=== PATIENT | female | born 1955 | race Caucasian/White ===

== ENCOUNTER 2016-07-13 16:26 | Emergency (ER) | payer MEDICARE, OTHER ==
[~2016-07-13 16:26] MED LIST: Sodium Chloride 0.9% 1,000 ML BAG ONE
--- NOTE | 2016-07-13 17:43 | RAD ---
PORTABLE CHEST 1 VIEW: Date: 07/13/16 Time: 1705 hours HISTORY: Nausea and vomiting. FINDINGS: Comparison made with exam of 08/27/12. The heart size is normal. The lungs are well expanded without focal areas of consolidation, pneumoth orax, or pleural effusions. IMPRESSION: No radiographic evidence of acute cardiopulmonary process. POS: [facility]
[2016-07-13 17:56] LABS: #Eosinphils 0.1 thou/uL (0.0-0.7); #Lymphocytes 0.5 thou/uL (1.20-3.40); #Monocytes 0.3 thou/uL (0.11-0.59); #Neutrophils 2.3 thou/uL (1.40-6.50); %Basophils 1.4 % (0.0-1.0); %Eosinophils 2.6 % (0.0-10.0); %Lymphocytes 15.4 % (21.0-51.0); %Monocytes 8.9 % (0.0-10.0); %Neutrophils 71.7 % (42.0-75.0); Mean Corpuscular HGB CONC 32.1 g/dL (32.0-36.0); Mean Corpuscular Hemoglobin 29.4 pg (27.0-31.0); Mean Corpuscular Volume 91.7 fl (81.0-99.0); Mean Platelet Volume 7.2 fL (7.4-10.4); Platelet Count 174 thou/uL (130-400); RBC Distribution Width 14.8 % (11.5-14.5); Red Blood Cell (RBC) Count 5.42 mill/uL (4.20-5.40); White Blood Cell (WBC) Count 3.2 thou/uL (4.8-10.8)
[2016-07-13] MEDS ORDERED: Pantoprazole 40 MG VIAL ONE (17:58)
[2016-07-13] MEDS ORDERED: Ondansetron HCl/PF 4 MG/2 ML Vial ONE (17:58)
[2016-07-13 17:59] LABS: ALT (SGPT) 36 U/L (0-55); AST (SGOT) 42 U/L (5-34); Albumin 4.6 g/dL (3.4-4.8); Alkaline Phosphatase 88 U/L (40-150); Anion Gap 26 mmol/L (10-20); BUN (Urea Nitrogen) 13 mg/dL (9.8-20.1); Bilirubin, Total 0.6 mg/dL (0.2-1.2); Calc. Creatinine Clearance 0 mL/min (70-130); Calcium 9.9 mg/dL (7.8-10.44); Carbon Dioxide 19 mmol/L (23-31); Chloride 99 mmol/L (98-107); Estimated GFR-MDRD 57; Globulin 3.5 g/dL (2.4-3.5); Glucose 178 mg/dL (80-115); Lactic Acid 6.2 mmol/L (0.5-2.2); Lipase 14 U/L (8-78); Magnesium 1.9 mg/dL (1.6-2.6); Potassium 4.3 mmol/L (3.5-5.1); Protein, Total 8.1 g/dL (5.8-8.1); Sodium 140 mmol/L (136-145)
[2016-07-13 18:03] LABS: CKMB 5.2 ng/mL (0-6.6); Troponin I Less than 0.010 ng/mL (< 0.028)
--- NOTE | 2016-07-13 19:31 | CT ---
CT ABDOMEN AND PELVIS WITHOUT CONTRAST: 07/13/16 HISTORY: Nausea, vomiting, diarrhea. FINDINGS: The absence of oral and IV contrast reduces the sensitivity of the exam particularly for solid organ s and bowel. The lung bases are clear. The patient is status post cholecystectomy. No free air or free fluid is s een in the abdomen or pelvis. The liver demonstrates decreased echogenicity compared to the spleen consistent with fatty infiltrat ion. There is atrophic change in the pancreas. No calculi is seen in the kidneys, ureters, or the ur inary bladder. No hydroureteronephrosis is seen on either side. There is fluid in loops of small and large bowel and the rectum. A normal appearing appendix is seen. There is no evidence of aneurysmal dilatation of the abdominal aorta. There are degenerative changes in the spine. A small hiatal julio ia is seen. IMPRESSION: 1. Fatty liver. 2. Small hiatal hernia. 3. No CT evidence of urinary tract calculi/obstruction or appendicitis. 4. Probable enteritis/colitis. POS: [facility]
[2016-07-13] MEDS ORDERED: Promethazine HCl 25 MG/ML VIAL ONE (19:54)
--- NOTE | 2016-07-13 20:05 | ERRECORD ---
[facility] EMERGENCY RECORD HPI NAUSEA/VOMITING/DIARRHEA (17:49 ABUS) CHIEF COMPLAINT: Patient presents for evaluation of nausea, Patient presents for evaluation of vomiting, Patient presents for evaluation of diarrhea. HISTORIAN: History provided by patient, 61 yr old F here with acute onset of N/V/D that started about 2 hrs ago. She says she doesn't feel good and has had an ulcer before. This does not feel the same. Denies any melena. LOCATION FEMALE: Symptoms are localized, most severe in the epigastrium. QUALITY: Pain is dull in nature, described as aching. SEVERITY: Currently symptoms are severe, Current severity of pain rated as 10/10. TIME COURSE: Sudden onset of symptoms, just prior to arrival, There has been no change in the patient's symptoms over time. ASSOCIATED WITH FEMALE: Associated with diarrhea, Associated with nausea, Associated with vomiting. EXACERBATED BY: Patient's condition exacerbated by nothing. RELIEVED BY: Patient's condition relieved by nothing. ROS (17:51 ABUS) CONSTITUTIONAL: Negative constitutional review of systems, Historian denies chills, denies fever. EYES: Negative eye review of systems, Historian denies eye pain, denies vision changes. ENT: Negative ears, nose, throat review of systems, Historian denies rhinorrhea, denies sore throat, denies voice changes. CARDIOVASCULAR: Negative cardiovascular review of systems, Historian denies chest pain, denies palpitations. RESPIRATORY: Negative respiratory review of systems, Historian denies cough, denies shortness of breath. GI: Historian reports abdominal pain, reports diarrhea, denies hematochezia, denies jaundice, denies melena, reports nausea, reports vomiting. GENITOURINARY FEMALE: Negative genitourinary review of systems, Historian denies dysuria, denies frequency. MUSCULOSKELETAL: Negative musculoskeletal review of systems, Historian denies back pain, denies fall, denies injury. SKIN: Negative skin review of systems, Historian denies rash, denies skin changes. NEUROLOGIC: Negative neurologic review of systems, Historian denies headache, denies mental status changes, denies paralysis, denies paresthesias, denies sensory changes. HEMO/LYMPHATIC: Normal hematologic/lymphatic system review, Historian denies abnormal blood clotting. ALLERGIC/IMMUNOLOGIC: Normal allergy/immunologic system review, Historian denies frequent infections. PAST MEDICAL HISTORY &a-1R&a+25V*p+0X*[id number]*c202B*c15G*c2P*p-0X&a-25V&a+1R Name: Liliana Rios : 1955 F61 MedRec: [id number] AcctNum: [id number] Prepared: SatJul 13, 2016 20:07 by Interface Page 1 of 4 pMD [facility] EMERGENCY RECORD MEDICAL HISTORY: Notes: multiple myleloma, stem cell transplant,, Past medical history includes history of diabetes, Type II, Past medical history includes endocrine disease, hyperthyroidism, Past medical history includes gastrointestinal disease, gastroesophageal reflux disease, peptic ulcer disease, Past medical history includes history of hyperlipidemia, high cholesterol, Past medical history includes history of hypertension, which has been treated, Past medical history includes history of obesity, pulmonary disease. asthma. (18:25 SFRE) FEMALE SURGICAL HISTORY: Surgical history of hysterectomy, Surgical history of orthopedic surgery, back, Surgical history of tonsillectomy. (18:29 SFRE) PSYCHIATRIC HISTORY: Psychiatric history includes, anxiety, depression. (18:30 SFRE) KNOWN ALLERGIES tetracycline CURRENT MEDICATIONS (18:36 SFRE) metFORMIN: TABLET : Strength - 1,000 mg : ORAL Patient Dose: 500 mg Oral 2 times a day. Synthroid: TABLET : Strength - 50 mcg : ORAL Patient Dose: 5 mg Oral once a day. VITAL SIGNS (16:30 SFRE) VITAL SIGNS: BP: 155/83, Pulse: 80, Resp: 18, Temp: 98.4 (Tympanic), Pain: 10 (Stabbing), O2 sat: 100 on 2L Oxygen, Time: 07/13/2016 16:30. PHYSICAL EXAM (17:51 ABUS) CONSTITUTIONAL: Vital signs reviewed, Patient afebrile, Pulse normal, Blood pressure normal, Respiratory rate normal, Patient appears non toxic, Patient appears pain free, Patient alert and oriented to person, place and time. HEAD: Head exam normal, Head exam included findings of head atraumatic, normocephalic. EYES: Eye exam normal, Eye exam included findings of eyelids normal to inspection, Pupils equally round and reactive to light, Extraocular muscles intact, no nystagmus. ENT: ENT exam normal, Ear exam normal, external ear normal, tympanic membranes normal, no bleeding, Pharynx exam normal, Uvula exam normal, Tonsil exam normal, Mouth exam normal, mucous membranes moist, teeth normal. NECK: Neck exam normal, Neck exam included findings of normal range of motion, Trachea midline, no meningeal signs, no cervical &a-1R&a+25V*p+0X*[id number]*c202B*c15G*c2P*p-0X&a-25V&a+1R Name: Liliana Rios : 1955 F61 MedRec: [id number] AcctNum: [id number] Prepared: SatJul 13, 2016 20:07 by Interface Page 2 of 4 pMD [facility] EMERGENCY RECORD adenopathy, no tenderness. RESPIRATORY CHEST: Respiratory and chest exam normal, Respiratory exam included findings of no respiratory distress, Breath sounds clear. CARDIOVASCULAR: Cardiovascular assessment normal, Cardiovascular exam included findings of heart rate regular rate and rhythm, Heart sounds normal. ABDOMEN FEMALE: Abdominal exam included findings of abdomen nontender, Bowel sounds, hypoactive, no distension, no mass, no peritoneal signs, no rigidity, no guarding, no rebound. BACK: Back exam normal, Back exam included findings of normal inspection, range of motion normal, no tenderness. UPPER EXTREMITY: Upper extremity exam normal, Upper extremity exam included findings of inspection normal, Range of motion normal, Motor strength normal, Sensation intact, Radial pulse normal. LOWER EXTREMITY: Lower extremity exam normal, Lower extremity exam included findings of inspection normal, Range of motion normal, Motor strength normal, Sensation intact, Posterior tibial pulse normal, Pedal pulse normal. NEURO: Neuro exam normal, Neuro exam findings include patient oriented to person, place and time, Speech normal, Gait normal, Cranial nerves intact, no focal motor deficits, no focal sensory deficits. SKIN: Skin exam normal, Skin exam included findings of skin warm, dry, and normal in color, no rash. PSYCHIATRIC: Psychiatric exam normal, Normal affect. RADIOLOGYINTERPRETATION (19:32 ABUS) ABDOMEN: Abdomen/pelvis CT scan, without contrast negative, no abdominal aortic aneurysm, no appendicitis, no diverticulitis, no kidney stones, no injuries, no mass, no obstruction, no free air, no hydronephrosis. COOLER ROOM WORKER: Preliminary review of CT scans by, ED Physician, Radiologist. MEDICATION ADMINISTRATION SUMMARY Drug Name: promethazine injection, Dose Ordered: 25 mg, Route: IV Piggy Back, Status: Given, Time: 20:00 07/13/2016, Drug Name: *sodium chloride 0.9 % intravenous, Dose Ordered: 2 L, Route: IV Fluid Infusion, Status: Given, Time: 19:59 07/13/2016, Drug Name: morphine (PF) injection, Dose Ordered: 4 mg, Route: IV Push, Status: Given, Time: 18:21 07/13/2016, Drug Name: pantoprazole intravenous, Dose Ordered: 40 mg, Route: IV Push, Status: Given, Time: 18:09 07/13/2016, Drug Name: Zofran intravenous, Dose Ordered: 8 mg, Route: IV Push, Status: Given, Time: 18:08 07/13/2016, Drug Name: *sodium chloride 0.9 % intravenous, Dose Ordered: 1 L, Route: IV Fluid Infusion, Status: Given, Time: 18:05 07/13/2016, &a-1R&a+25V*p+0X*[id number]*c202B*c15G*c2P*p-0X&a-25V&a+1R Name: Liliana Rios : 1955 F61 MedRec: [id number] AcctNum: [id number] Prepared: SatJul 13, 2016 20:07 by Interface Page 3 of 4 pMD [facility] EMERGENCY RECORD *Additional information available in notes, Detailed record available in Medication Service section. DOCTOR NOTES (17:52 ABUS) TEXT: 61 yr old F here with acute onset of N/V/D that started about 2 hrs ago. She says she doesn't feel good and has had an ulcer before Exam: ANGÉLICA pain to palpation DDX: viral gastroenteritis, gastritis, dehydration, electrolyte disorder, pancreatitis, cholecystitis Plan: IV, IVF, labs, UA, antiemetics, CXR. PROBLEM LIST No recorded problems DIAGNOSIS (19:45 ABUS) FINAL: PRIMARY: Diarrhea, ADDITIONAL: Nausea with vomiting. PRESCRIPTION No recorded prescriptions DISPOSITION PATIENT: Disposition Type: Transfer, Disposition: Transfer to [facility], Disposition Transport: Ambulance, Condition: Fair. (19:45 ABUS) Patient left the department. (20:03 JDEA) [place]: MICHELLE=MD Kayy, Freddy IVY=Pedro, SOY, Sandra CLEMENTS=SOY [place], Kimberley &a-1R&a+25V*p+0X*[id number]*c202B*c15G*c2P*p-0X&a-25V&a+1R Name: Liliana Rios : 1955 F61 MedRec: [id number] AcctNum: [id number] Prepared: SatJul 13, 2016 20:07 by Interface Page 4 of 4 pMD MTDD
--- NOTE | 2016-07-13 20:13 | PICIS ---
[facility] EMERGENCY RECORD TRIAGE (SatJul 13, 2016 16:31 SFRE) TRIAGE NOTES: N/V/D THAT STARTED 2 HOURS AGO. (SatJul 13, 2016 16:31 SFRE) PATIENT: AGE: 61, GENDER: female, : Sat1955, TIME OF GREET: SatJul 13, 2016 16:28, PREFERRED LANGUAGE: Hungarian, ECODE BILLING MAP: [facility], Zip Code: [facility], KG WEIGHT: [phone], PHONE: , , , PERSON ID: [id number], PCP: OOT. (SatJul 13, 2016 16:31 SFRE) NAME: Liliana Rios, ETHNICITY: Not or . (16:44) COMPLAINT: DIARRHEA, VOMITING. (SatJul 13, 2016 16:31 SFRE) ADMISSION: URGENCY: 3 Urgent, ADMISSION SOURCE: Home, TRANSPORT: Walk-in, BED: ED -03. (SatJul 13, 2016 16:31 SFRE) SIRS SCORING: Heart Rate 55-109 (0), Temp range 96.8-101.1 (0), respiratory rate 12-24 (0), Mental Status altered: no (0). (18:25 SFRE) TRIAGE SCREENING: Patient denies suicidal ideation, Patient denies presence of domestic violence. (18:25 SFRE) PROVIDERS: TRIAGE NURSE: Kimberley Oviedo RN. (SatJul 13, 2016 16:31 SFRE) VITAL SIGNS: BP 155/83, Pulse 80, Resp 18, Temp 98.4, (Tympanic), Pain 10, (Stabbing), O2 Sat 100, on 2L Oxygen, Time 07/13/2016 16:30. (16:30 SFRE) KNOWN ALLERGIES tetracycline CURRENT MEDICATIONS (18:36 SFRE) metFORMIN: TABLET : Strength - 1,000 mg : ORAL Patient Dose: 500 mg Oral 2 times a day. Synthroid: TABLET : Strength - 50 mcg : ORAL Patient Dose: 5 mg Oral once a day. VITAL SIGNS (16:30 SFRE) VITAL SIGNS: BP: 155/83, Pulse: 80, Resp: 18, Temp: 98.4 (Tympanic), Pain: 10 (Stabbing), O2 sat: 100 on 2L Oxygen, Time: 07/13/2016 16:30. NURSING ASSESSMENT: ABDOMEN (18:30 SFRE) CONSTITUTIONAL: Patient arrives ambulatory, Gait steady, History obtained from patient, Patient appears, generally ill, Patient cooperative, Patient alert, Oriented to person, place and time, Skin abnormal, Skin temperature is cold, Skin dry, Skin, pale in color, Mucous membranes pink, Mucous membranes, tacky, Patient is well-groomed, Patient complains of N/V/D. 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 ABDOMEN: Abdomen assessment findings include abdomen symmetrical, Abdomen soft, tender, diffusely, Associated with nausea, Associated with vomiting, Associated with diarrhea, Number of episodes: MULTIPLE, CLEAR FLUID. GENITOURINARY FEMALE: no associated urinary complaints. SAFETY: Side rails up, Cart/Stretcher in lowest position, Family at bedside, Call light within reach, Hospital ID band on. NURSING ASSESSMENT: FALL RISK (19:42 JDEA) FALL RISK: Fall risk assessment findings include: no history of falls (0), No bed rest greater than 2 days (0), No use of level of consciousness altering agents with mentation or cognitive changes (0), No change in blood pressure (0), No sensory deficits (0), No impaired mobility (0), No neurologic diagnosis (0), Elimination problems (3), No confusion (0), Total score 3, No risk for fall, Notes: utilizes standby assist. NURSING ASSESSMENT: SKIN (19:42 JDEA) SKIN: Skin assessment findings include skin warm, Skin dry, Skin normal in color. NUNO SCALE: (4) Sensory perception has no impairment, (4) Skin is rarely moist, (3) Patient walks occasionally, (3) Slightly limited mobility, (3) Adequate nutrition, (2) Patient has potential problem moving, Nuno Risk Total: 19. NOTES: Patient tolerated procedure well. NURSING PROCEDURE: ELIMINATION (19:20 JDEA) PATIENT IDENTIFIER: Patient actively involved in identification process. ELIMINATION: Patient assisted to bedside commode, Patient had a large amount of stool per bedpan, liquid in form, Stool specimen collected, labeled in the presence of the patient and sent to lab, Patient incontinent of stool, Incontinence care given, Stool specimen collected, and sent to lab, Stool specimen for culture collected, and sent to lab, and labeled in the presence of the patient. NOTES: Patient tolerated procedure well. NURSING PROCEDURE: IV IV SITE 1: IV therapy indicated for hydration, IV therapy indicated for medication administration, IV established, to the right antecubital, using a 20 gauge catheter, in one attempt, Saline lock established, Flushed with normal saline (mls): 5CC. (18:33 SFRE) FOLLOW-UP SITE 1: After procedure, no drainage at IV site, After procedure, no swelling at IV site, After procedure, no redness at IV site. (18:34 SFRE) &a-1R&a+25V*p+0X*d7582Y*c202B*c15G*c2P*p-0X&a-25V&a+1R Name: Liliana Rios : 1955 F61 MedRec: [id number] AcctNum: [id number] Prepared: SatJul 13, 2016 20:07 by Interface Page 2 of 13 D [facility] EMERGENCY RECORD NURSING PROCEDURE: NURSE NOTES (18:37 SFRE) NURSES NOTES: Notes: ON BSC WITH CONTINUOUS DIARRHEA. NURSING PROCEDURE: TRANSFER (20:01 JDEA) TRANSFER: Reason for transfer need for specialized care, Diagnosis: colitis, Accepting institution: [facility], Accepting physician: rosemary, Referring physician: kayy, Transported by non-urgent ambulance, accompanied by emergency medical services personnel, Report called to receiving facility, Summary of Care printed. BELONGINGS: Belongings and valuables with patient at time of discharge include:, Belongings remain with patient. NOTES: Patient tolerated procedure well. NURSING PROCEDURE: TRANSPORT TO TESTS PATIENT IDENTIFIER: Patient actively involved in identification process, Patient's identity verified by patient stating name, Patient's identity verified by patient stating date, Patient's identity verified by hospital ID bracelet. (18:59 JDEA) TRANSPORT TO TESTS: Transport indicated to facilitate diagnosis, Patient transported to CT scan, via wheelchair, Accompanied by x-ray salvage engineering technician. (18:59 JDEA) FOLLOW-UP: After procedure, patient returned to emergency department. (19:15 JDEA) NOTES: Patient tolerated procedure well. (18:59 JDEA) SAFETY: Side rails up, Cart/Stretcher in lowest position, Family at bedside, Call light within reach, Hospital ID band on. (18:59 JDEA) ORDER DETAILS Order Name: Cardiac Profile w/CKMB & Troponin - I, Status: Active, Time: 16:43 07/13/2016, User: ABUS, - Ordered for: MD Sultana Anthony, - Entered by: MD Sultana Anthony - SatJul 13, 2016 16:43, - Quantity: 1, Order Name: CBC with Differential, Status: Active, Time: 16:43 07/13/2016, User: ABUS, - Ordered for: MD Sultana Anthony, - Entered by: MD Sultana Anthony - SatJul 13, 2016 16:43, - Quantity: 1, Order Name: Clostridium difficile Screen, Status: Active, Time: 18:58 07/13/2016, User: JDEA, - Ordered for: MD Sultana Anthony, - Entered by: SOY Vasquez Justine - SatJul 13, 2016 18:58, - Quantity: 1, Order Name: Comprehensive Metabolic Panel, Status: Active, Time: 16:43 07/13/2016, User: ABUS, - Ordered for: MD Sultana Anthony, &a-1R&a+25V*p+0X*c8213J*c202B*c15G*c2P*p-0X&a-25V&a+1R Name: Liliana Rios : 1955 F61 MedRec: [id number] AcctNum: [id number] Prepared: SatJul 13, 2016 20:07 by Interface Page 3 of 13 pMD [facility] EMERGENCY RECORD - Entered by: MD Sultana Anthony - SatJul 13, 2016 16:43, - Quantity: 1, Order Name: CT Abdomen Pelvis W Con, Status: Canceled, Time: 18:41 07/13/2016, User: System, - Ordered for: MD Sultana Anthony, - Entered by: MD Sultana Anthony - SatJul 13, 2016 18:09, - Quantity: 1, Order Name: Culture, Blood, Status: Active, Time: 18:08 07/13/2016, User: ABUS, - Ordered for: MD Sultana Anthony, - Entered by: MD Sultana Anthony - SatJul 13, 2016 18:08, - Quantity: 1, Order Name: Culture, Stool & Campy Screen, Status: Active, Time: 18:58 07/13/2016, User: BIJU, - Ordered for: MD Sultana Anthony, - Entered by: SOY Vasquez, Sandra - SatJul 13, 2016 18:58, - Quantity: 1, Order Name: Culture, Stool for E.coli O157, Status: Active, Time: 18:58 07/13/2016, User: BIJU, - Ordered for: MD Sultana Anthony, - Entered by: SOY Vasquez, Sandra - SatJul 13, 2016 18:58, - Quantity: 1, Order Name: Culture, Urine, Status: Active, Time: 18:08 07/13/2016, User: AB, - Ordered for: MD Sultana Anthony, - Entered by: MD Sultana Anthony - SatJul 13, 2016 18:08, - Quantity: 1, Order Name: Fecal Lactoferrin, Status: Active, Time: 18:58 07/13/2016, User: BIJU, - Ordered for: MD Sultana Anthony, - Entered by: SOY Vasquez, Sandra - SatJul 13, 2016 18:58, - Quantity: 1, Order Name: Lactic Acid, Status: Active, Time: 16:44 07/13/2016, User: MICHELLE, - Ordered for: MD Sultana Anthony, - Entered by: MD Sultana Anthony - SatJul 13, 2016 16:44, - Quantity: 1, Order Name: Lipase, Status: Active, Time: 16:43 07/13/2016, User: ABUS, - Ordered for: MD Sultana Anthony, - Entered by: MD Sultana Anthony - SatJul 13, 2016 16:43, - Quantity: 1, Order Name: Magnesium, Status: Active, Time: 16:44 07/13/2016, User: ABUS, - Ordered for: MD Sultana Anthony, - Entered by: MD Sultana Anthony - SatJul 13, 2016 16:44, - Quantity: 1, Order Name: SALINE LOCK, Status: Done, Time: 18:26 07/13/2016, User: SFRE, - Ordered for: MD Sultana Anthony, - Entered by: MD Sultana Anthony - SatJul 13, 2016 16:44, &a-1R&a+25V*p+0X*h5700X*c202B*c15G*c2P*p-0X&a-25V&a+1R Name: Liliana Rios : 1955 F61 MedRec: [id number] AcctNum: [id number] Prepared: SatJul 13, 2016 20:07 by Interface Page 4 of 13 D [facility] EMERGENCY RECORD - Quantity: 1, Order Name: Type & Screen, Status: Active, Time: 16:43 07/13/2016, User: ABUS, - Ordered for: MD Sultana Anthony, - Entered by: MD Sultana Anthony - SatJul 13, 2016 16:43, - Quantity: 1, Order Name: Urinalysis w/ Rflx Microscopic, Status: Active, Time: 16:43 07/13/2016, User: ABUS, - Ordered for: MD Sultana Anthony, - Entered by: MD Sultana Anthony - SatJul 13, 2016 16:43, - Quantity: 1, Order Name: XR Chest 1 View Portable, Status: Active, Time: 16:43 07/13/2016, User: ABUS, - Ordered for: MD Sultana Anthony, - Entered by: MD Sultana Anthony - SatJul 13, 2016 16:43, - Quantity: 1. MEDICATION ADMINISTRATION SUMMARY Drug Name: promethazine injection, Dose Ordered: 25 mg, Route: IV Piggy Back, Status: Given, Time: 20:00 07/13/2016, Drug Name: *sodium chloride 0.9 % intravenous, Dose Ordered: 2 L, Route: IV Fluid Infusion, Status: Given, Time: 19:59 07/13/2016, Drug Name: morphine (PF) injection, Dose Ordered: 4 mg, Route: IV Push, Status: Given, Time: 18:21 07/13/2016, Drug Name: pantoprazole intravenous, Dose Ordered: 40 mg, Route: IV Push, Status: Given, Time: 18:09 07/13/2016, Drug Name: Zofran intravenous, Dose Ordered: 8 mg, Route: IV Push, Status: Given, Time: 18:08 07/13/2016, Drug Name: *sodium chloride 0.9 % intravenous, Dose Ordered: 1 L, Route: IV Fluid Infusion, Status: Given, Time: 18:05 07/13/2016, *Additional information available in notes, Detailed record available in Medication Service section. MEDICATION SERVICE morphine (PF) injection: Order: morphine (PF) injection (morphine sulfate/preservative free) - Dose: 4 mg : IV Push Schedule: Now Ordered by: Freddy Sultana MD Entered by: Freddy Sultana MD SatJul 13, 2016 17:57 , Acknowledged by: Kimberley Oviedo RN SatJul 13, 2016 18:09 Documented as given by: Kimberley Oviedo RN SatJul 13, 2016 18:21 Patient, Medication, Dose, Route and Time verified prior to administration. Amount given: 4mg, IV SITE #1 IVP, subsequent different medication, Slowly, Awake and alert- acceptable, Catheter placement confirmed via flush prior to administration, IV site without signs or symptoms of infiltration during medication administration, No swelling during administration, No drainage during administration, IV flushed after administration, Correct patient, time, route, dose and medication &a-1R&a+25V*p+0X*i2379K*c202B*c15G*c2P*p-0X&a-25V&a+1R Name: Liliana Rios : 1955 F61 MedRec: [id number] AcctNum: [id number] Prepared: SatJul 13, 2016 20:07 by Interface Page 5 of 13 pMD [facility] EMERGENCY RECORD confirmed prior to administration, Patient advised of actions and side-effects prior to administration, Allergies confirmed and medications reviewed prior to administration, Patient in position of comfort, Side rails up, Cart in lowest position, Family at bedside. pantoprazole intravenous: Order: pantoprazole intravenous (pantoprazole sodium) - Dose: 40 mg : IV Push Schedule: Now Ordered by: Freddy Sultana MD Entered by: Freddy Sultana MD SatJul 13, 2016 16:45 , Acknowledged by: Kimberley Oviedo RN SatJul 13, 2016 17:56 Documented as given by: Kimberley Oviedo RN SatJul 13, 2016 18:09 Patient, Medication, Dose, Route and Time verified prior to administration. Amount given: 40mg, IV SITE #1 IVP, subsequent different medication, Slowly, Awake and alert- acceptable, Catheter placement confirmed via flush prior to administration, IV site without signs or symptoms of infiltration during medication administration, No swelling during administration, No drainage during administration, IV flushed after administration, Correct patient, time, route, dose and medication confirmed prior to administration, Patient advised of actions and side-effects prior to administration, Allergies confirmed and medications reviewed prior to administration, Patient in position of comfort, Side rails up, Cart in lowest position, Family at bedside. promethazine injection: Order: promethazine injection (promethazine HCl) - Dose: 25 mg : IV Piggy Back Schedule: Now Ordered by: Freddy Sultana MD Entered by: Freddy Sultana MD SatJul 13, 2016 19:13 , Acknowledged by: Sandra Vasquez RN SatJul 13, 2016 19:24 Documented as given by: Sandra Vasquez RN SatJul 13, 2016 20:00 Patient, Medication, Dose, Route and Time verified prior to administration. Amount given: 25mg, IV SITE #1 IVPB or drip, initial infusion, Awake and alert- acceptable, Ordering Physician approved to Give, Connections checked prior to administration, Line traced prior to administration, Catheter placement confirmed via flush prior to administration, IV site without signs or symptoms of infiltration during medication administration, No swelling during administration, No drainage during administration, IV flushed after administration, Correct patient, time, route, dose and medication confirmed prior to administration, Patient advised of actions and side-effects prior to administration, Allergies confirmed and medications reviewed prior to administration, Patient in position of comfort, Side rails up, Cart in lowest position, Family at bedside, Call light in reach. sodium chloride 0.9 % intravenous: Order: sodium chloride 0.9 % intravenous (0.9 % sodium chloride) - Dose: 1 L : IV Fluid Infusion Schedule: Now Notes: (Bolus) Ordered by: Freddy Sultana MD &a-1R&a+25V*p+0X*g0618L*c202B*c15G*c2P*p-0X&a-25V&a+1R Name: Liliana Rios : 1955 F61 MedRec: [id number] AcctNum: [id number] Prepared: SatJul 13, 2016 20:07 by Interface Page 6 of 13 D [facility] EMERGENCY RECORD Entered by: Freddy Sultana MD SatJul 13, 2016 16:44 , Acknowledged by: Kimberley Oviedo RN SatJul 13, 2016 17:56 Documented as given by: Kimberley Oviedo RN SatJul 13, 2016 18:05 Patient, Medication, Dose, Route and Time verified prior to administration. Amount given: 1l, IV SITE #1 IV fluids established for hydration, IV SITE #1 into left antecubital, IV SITE #1 Rate of bolus, wide open, via primary tubing, IV SITE #1 Tubing changed to pump tubing, Awake and alert- acceptable, Catheter placement confirmed via flush prior to administration, IV site without signs or symptoms of infiltration during medication administration, No swelling during administration, No drainage during administration, IV flushed after administration, Correct patient, time, route, dose and medication confirmed prior to administration, Patient advised of actions and side-effects prior to administration, Allergies confirmed and medications reviewed prior to administration, Patient in position of comfort, Side rails up, Cart in lowest position, Family at bedside. : Follow Up : Response assessment performed, No signs or symptoms of allergic reaction noted, _IV SITE #1:_, IV fluid infusion discontinued, on SatJul 13, 2016 20:00, Total fluid hydration time IV site 1 1 hour, 55 minutes, ., Total amount infused: 1L. (20:00 JDEA) sodium chloride 0.9 % intravenous: Order: sodium chloride 0.9 % intravenous (0.9 % sodium chloride) - Dose: 2 L : IV Fluid Infusion Schedule: Now Notes: (Bolus) Ordered by: Freddy Sultana MD Entered by: Freddy Sultana MD SatJul 13, 2016 18:01 , Acknowledged by: Kimberley Oviedo RN SatJul 13, 2016 18:39 Documented as given by: Sandra Vasquez RN SatJul 13, 2016 19:59 Patient, Medication, Dose, Route and Time verified prior to administration. Amount given: 2L, IV SITE #1 IV fluids established for hydration, Catheter placement confirmed via flush prior to administration, IV site without signs or symptoms of infiltration during medication administration, No swelling during administration, No drainage during administration, IV flushed after administration, Correct patient, time, route, dose and medication confirmed prior to administration, Patient advised of actions and side-effects prior to administration, Allergies confirmed and medications reviewed prior to administration, Patient in position of comfort, Side rails up, Cart in lowest position, Family at bedside, Call light in reach. : Follow Up : Response assessment performed, No signs or symptoms of allergic reaction noted, _IV SITE #1:_, IV fluid infusion discontinued, on SatJul 13, 2016 20:01, 5 minutes, ., Total amount infused: 2L. (20:01 JDEA) Zofran intravenous: Order: Zofran intravenous (ondansetron HCl) - Dose: 8 mg : IV Push Schedule: Now &a-1R&a+25V*p+0X*u7339S*c202B*c15G*c2P*p-0X&a-25V&a+1R Name: Liliana Rios : 1955 F61 MedRec: [id number] AcctNum: [id number] Prepared: SatJul 13, 2016 20:07 by Interface Page 7 of 13 pMD [facility] EMERGENCY RECORD Ordered by: Freddy Sultana MD Entered by: Freddy Sultana MD Fri Jul 13, 2016 16:46 , Acknowledged by: Kimberley Oviedo RN [facility] Jul 13, 2016 17:56 Documented as given by: Kimberley Oviedo RN [facility] Jul 13, 2016 18:08 Patient, Medication, Dose, Route and Time verified prior to administration. Amount given: 8mg, IV SITE #1 IVP, initial medication, Slowly, Awake and alert- acceptable, Catheter placement confirmed via flush prior to administration, IV site without signs or symptoms of infiltration during medication administration, No swelling during administration, No drainage during administration, IV flushed after administration, Correct patient, time, route, dose and medication confirmed prior to administration, Patient advised of actions and side-effects prior to administration, Allergies confirmed and medications reviewed prior to administration, Patient in position of comfort, Side rails up, Cart in lowest position, Family at bedside. HPI NAUSEA/VOMITING/DIARRHEA (17:49 ABUS) CHIEF COMPLAINT: Patient presents for evaluation of nausea, Patient presents for evaluation of vomiting, Patient presents for evaluation of diarrhea. HISTORIAN: History provided by patient, 61 yr old F here with acute onset of N/V/D that started about 2 hrs ago. She says she doesn't feel good and has had an ulcer before. This does not feel the same. Denies any melena. LOCATION FEMALE: Symptoms are localized, most severe in the epigastrium. QUALITY: Pain is dull in nature, described as aching. SEVERITY: Currently symptoms are severe, Current severity of pain rated as 10/10. TIME COURSE: Sudden onset of symptoms, just prior to arrival, There has been no change in the patient's symptoms over time. ASSOCIATED WITH FEMALE: Associated with diarrhea, Associated with nausea, Associated with vomiting. EXACERBATED BY: Patient's condition exacerbated by nothing. RELIEVED BY: Patient's condition relieved by nothing. ROS (17:51 ABUS) CONSTITUTIONAL: Negative constitutional review of systems, Historian denies chills, denies fever. EYES: Negative eye review of systems, Historian denies eye pain, denies vision changes. ENT: Negative ears, nose, throat review of systems, Historian denies rhinorrhea, denies sore throat, denies voice changes. CARDIOVASCULAR: Negative cardiovascular review of systems, Historian denies chest pain, denies palpitations. RESPIRATORY: Negative respiratory review of systems, Historian denies cough, denies shortness of breath. GI: Historian reports abdominal pain, reports &a-1R&a+25V*p+0X*o3518F*c202B*c15G*c2P*p-0X&a-25V&a+1R Name: Liliana Rios : 1955 F61 MedRec: [id number] AcctNum: [id number] Prepared: SatJul 13, 2016 20:07 by Interface Page 8 of 13 pMD [facility] EMERGENCY RECORD diarrhea, denies hematochezia, denies jaundice, denies melena, reports nausea, reports vomiting. GENITOURINARY FEMALE: Negative genitourinary review of systems, Historian denies dysuria, denies frequency. MUSCULOSKELETAL: Negative musculoskeletal review of systems, Historian denies back pain, denies fall, denies injury. SKIN: Negative skin review of systems, Historian denies rash, denies skin changes. NEUROLOGIC: Negative neurologic review of systems, Historian denies headache, denies mental status changes, denies paralysis, denies paresthesias, denies sensory changes. HEMO/LYMPHATIC: Normal hematologic/lymphatic system review, Historian denies abnormal blood clotting. ALLERGIC/IMMUNOLOGIC: Normal allergy/immunologic system review, Historian denies frequent infections. PAST MEDICAL HISTORY MEDICAL HISTORY: Notes: multiple myleloma, stem cell transplant,, Past medical history includes history of diabetes, Type II, Past medical history includes endocrine disease, hyperthyroidism, Past medical history includes gastrointestinal disease, gastroesophageal reflux disease, peptic ulcer disease, Past medical history includes history of hyperlipidemia, high cholesterol, Past medical history includes history of hypertension, which has been treated, Past medical history includes history of obesity, pulmonary disease. asthma. (18:25 SFRE) FEMALE SURGICAL HISTORY: Surgical history of hysterectomy, Surgical history of orthopedic surgery, back, Surgical history of tonsillectomy. (18:29 SFRE) PSYCHIATRIC HISTORY: Psychiatric history includes, anxiety, depression. (18:30 SFRE) PHYSICAL EXAM (17:51 ABUS) CONSTITUTIONAL: Vital signs reviewed, Patient afebrile, Pulse normal, Blood pressure normal, Respiratory rate normal, Patient appears non toxic, Patient appears pain free, Patient alert and oriented to person, place and time. HEAD: Head exam normal, Head exam included findings of head atraumatic, normocephalic. EYES: Eye exam normal, Eye exam included findings of eyelids normal to inspection, Pupils equally round and reactive to light, Extraocular muscles intact, no nystagmus. ENT: ENT exam normal, Ear exam normal, external ear normal, tympanic membranes normal, no bleeding, Pharynx exam normal, Uvula exam normal, Tonsil exam normal, Mouth exam normal, mucous membranes moist, teeth normal. NECK: Neck exam normal, Neck exam included findings of normal &a-1R&a+25V*p+0X*u9279V*c202B*c15G*c2P*p-0X&a-25V&a+1R Name: Liliana Rios : 1955 F61 MedRec: [id number] AcctNum: [id number] Prepared: SatJul 13, 2016 20:07 by Interface Page 9 of 13 pMD [facility] EMERGENCY RECORD range of motion, Trachea midline, no meningeal signs, no cervical adenopathy, no tenderness. RESPIRATORY CHEST: Respiratory and chest exam normal, Respiratory exam included findings of no respiratory distress, Breath sounds clear. CARDIOVASCULAR: Cardiovascular assessment normal, Cardiovascular exam included findings of heart rate regular rate and rhythm, Heart sounds normal. ABDOMEN FEMALE: Abdominal exam included findings of abdomen nontender, Bowel sounds, hypoactive, no distension, no mass, no peritoneal signs, no rigidity, no guarding, no rebound. BACK: Back exam normal, Back exam included findings of normal inspection, range of motion normal, no tenderness. UPPER EXTREMITY: Upper extremity exam normal, Upper extremity exam included findings of inspection normal, Range of motion normal, Motor strength normal, Sensation intact, Radial pulse normal. LOWER EXTREMITY: Lower extremity exam normal, Lower extremity exam included findings of inspection normal, Range of motion normal, Motor strength normal, Sensation intact, Posterior tibial pulse normal, Pedal pulse normal. NEURO: Neuro exam normal, Neuro exam findings include patient oriented to person, place and time, Speech normal, Gait normal, Cranial nerves intact, no focal motor deficits, no focal sensory deficits. SKIN: Skin exam normal, Skin exam included findings of skin warm, dry, and normal in color, no rash. PSYCHIATRIC: Psychiatric exam normal, Normal affect. EVENTS TRANSFER: Triage to Emergency Main ED -03. (SatJul 13, 2016 16:31 SFRE) Removed from Emergency Main ED -03. (20:03 JDEA) RADIOLOGYINTERPRETATION (19:32 ABUS) ABDOMEN: Abdomen/pelvis CT scan, without contrast negative, no abdominal aortic aneurysm, no appendicitis, no diverticulitis, no kidney stones, no injuries, no mass, no obstruction, no free air, no hydronephrosis. 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 DOCTOR NOTES (17:52 ABUS) TEXT: 61 yr old F here with acute onset of N/V/D that started about 2 hrs ago. She says she doesn't feel good and has had an ulcer before Exam: ANGÉLICA pain to palpation DDX: viral gastroenteritis, gastritis, dehydration, electrolyte disorder, pancreatitis, cholecystitis Plan: IV, IVF, labs, UA, antiemetics, CXR. &a-1R&a+25V*p+0X*[id number]*c202B*c15G*c2P*p-0X&a-25V&a+1R Name: Liliana Rios : 1955 F61 MedRec: [id number] AcctNum: [id number] Prepared: SatJul 13, 2016 20:07 by Interface Page 10 of 13 pMD [facility] EMERGENCY RECORD PROBLEM LIST No recorded problems DIAGNOSIS (19:45 ABUS) FINAL: PRIMARY: Diarrhea, ADDITIONAL: Nausea with vomiting. DISPOSITION PATIENT: Disposition Type: Transfer, Disposition: Transfer to [facility], Disposition Transport: Ambulance, Condition: Fair. (19:45 ABUS) Patient left the department. (20:03 JDEA) PRESCRIPTION No recorded prescriptions IMAGING *MEMORANDUM OF TRANSFER: Image captured from scanner. (19:53 JDEA) CONSENT FOR XFER: Image captured from scanner. (19:53 JDEA) EMS TRANSPORT ORDERS: Image captured from scanner. (19:53 JDEA) *SUPPLY CHARGE SHEET: Image captured from scanner. (20:04 JDEA) ADMIN (19:46 ABUS) DIGITAL SIGNATURE: MD Sultana Anthony. RESULTS RADIOLOGY: XR Chest 1 View Portable Observe DT: SatJul 13, 2016 16:46, CXRP PORTABLE CHEST 1 VIEW: Date: 07/13/16 Time: 1705 hours HISTORY: Nausea and vomiting. FINDINGS: Comparison made with exam of 08/27/12. The heart size is normal. The lungs are well expanded without focal areas of consolidation, pneumoth orax, or pleural effusions. IMPRESSION: No radiographic evidence of acute cardiopulmonary process. &a-1R&a+25V*p+0X*[id number]*c202B*c15G*c2P*p-0X&a-25V&a+1R Name: Liliana Rios : 1955 F61 MedRec: [id number] AcctNum: [id number] Prepared: SatJul 13, 2016 20:07 by Interface Page 11 of 13 pMD [facility] EMERGENCY RECORD POS: H . (17:48 ABUS) LABORATORY: Lactic Acid Collection DT: SatJul 13, 2016 17:43, See comment below , CALLED RESULTS TO SOY ARGUETA @ ER ROOM#: ED-03 , Critical Call Chem-Lactate CALLED W/READ BACK , *Lactic Acid 6.2 - *H mmol/L, Range (0.5-2.2). (18:02 ABUS) Magnesium Collection DT: SatJul 13, 2016 17:43, Magnesium 1.9 mg/dL, Range (1.6-2.6), NOTE: Higher values can be expected in females during menses . (18:02 ABUS) Lipase Collection DT: SatJul 13, 2016 17:43, Lipase 14 U/L, Range (8-78). (18:02 ABUS) Comprehensive Metabolic Panel Collection DT: SatJul 13, 2016 17:43, Sodium 140 mmol/L, Range (136-145), Potassium 4.3 mmol/L, Range (3.5-5.1), Chloride 99 mmol/L, Range (98-107), *Carbon Dioxide 19 - L mmol/L, Range (23-31), *Anion Gap 26 - H mmol/L, Range (10-20), BUN (Urea Nitrogen) 13 mg/dL, Range (9.8-20.1), Creatinine 0.98 mg/dL, Range (0.6-1.1), Estimated GFR-MDRD 57 , Reference Range for Estimated GFR: Greater than 90, mL/min/1.73 m2 NOTE: The MDRD equation has not been validated for use, with the elderly (over 70 years of age), women, patients with, serious comorbid condition or persons with extremes of body size, muscle, mass, or nutritional status. , *Glucose 178 - H mg/dL, Range (80-115), Calcium 9.9 mg/dL, Range (7.8-10.44), Bilirubin, Total 0.6 mg/dL, Range (0.2-1.2), Protein, Total 8.1 g/dL, Range (5.8-8.1), NOTE: Plasma values are generally 0.3 to 0.5 g/dL higher than serum values, due to the presence of fibrinogen. , Albumin 4.6 g/dL, Range (3.4-4.8), Globulin 3.5 g/dL, Range (2.4-3.5), Alb/Glob Ratio 1.3 g/dL, Range (1.2-2.2), Alkaline Phosphatase 88 U/L, Range (40-150), *AST (SGOT) 42 - H U/L, Range (5-34), ALT (SGPT) 36 U/L, Range (0-55). (18:02 ABUS) CBC with Differential Collection DT: SatJul 13, 2016 17:43, *White Blood Cell (WBC) Count 3.2 - L thou/uL, Range (4.8-10.8), *Red Blood Cell (RBC) Count 5.42 - H mill/uL, Range (4.20-5.40), Hemoglobin 16.0 g/dL, Range (12.0-16.0), *Hematocrit 49.7 - H %, Range (36.0-47.0), Mean Corpuscular Volume 91.7 fl, Range (81.0-99.0), Mean Corpuscular Hemoglobin 29.4 pg, Range (27.0-31.0), Mean Corpuscular HGB CONC 32.1 g/dL, Range (32.0-36.0), *RBC Distribution Width 14.8 - H %, Range (11.5-14.5), Platelet Count 174 thou/uL, Range (130-400), &a-1R&a+25V*p+0X*[id number]*c202B*c15G*c2P*p-0X&a-25V&a+1R Name: Liliana Rios : 1955 F61 MedRec: [id number] AcctNum: [id number] Prepared: SatJul 13, 2016 20:07 by Interface Page 12 of 13 pMD [facility] EMERGENCY RECORD *Mean Platelet Volume 7.2 - L fL, Range (7.4-10.4), %Neutrophils 71.7 %, Range (42.0-75.0), *%Lymphocytes 15.4 - L %, Range (21.0-51.0), %Monocytes 8.9 %, Range (0.0-10.0), %Eosinophils 2.6 %, Range (0.0-10.0), *%Basophils 1.4 - H %, Range (0.0-1.0), #Neutrophils 2.3 thou/uL, Range (1.40-6.50), *#Lymphocytes 0.5 - L thou/uL, Range (1.20-3.40), #Monocytes 0.3 thou/uL, Range (0.11-0.59), #Eosinphils 0.1 thou/uL, Range (0.0-0.7), #Basophils 0.0 thou/uL, Range (0.0-0.2). (18:02 ABUS) Cardiac Profile w/CKMB & TropI Collection DT: SatJul 13, 2016 17:43, CKMB 5.2 ng/mL, Range (0-6.6), Troponin I Less than 0.010 ng/mL, Range (< 0.028), Reference Range , 0.00 - 0.028 ng/mL Negative 0.029 - 0.29 ng/mL , Indeterminate Greater or Equal to 0.3 ng/mL Strongly suggests [place] , . (18:06 ABUS) Escalante: MICHELLE=MD Kayy, Freddy IVY=Pedro, RN, Sandra CLEMENTS=SOY [place]ied[place], Kimberley &a-1R&a+25V*p+0X*[id number]*c202B*c15G*c2P*p-0X&a-25V&a+1R Name: Liliana Rios : 1955 F61 MedRec: [id number] AcctNum: [id number] Prepared: SatJul 13, 2016 20:07 by Interface Page 13 of 13 pMD [facility]TDD
== END 2016-07-13 20:03 | disposition short-term general hospital (02) ==
LOC: MADERS 16:26
DX: R19.7 Diarrhea, unspecified (principal); R11.2 Nausea with vomiting, unspecified; E11.9 Type 2 diabetes mellitus without complications; E03.9 Hypothyroidism, unspecified; K21.9 Gastro-esophageal reflux disease without esophagitis; E78.5 Hyperlipidemia, unspecified; E78.00 Pure hypercholesterolemia, unspecified; I10 Essential (primary) hypertension; J45.909 Unspecified asthma, uncomplicated; F41.9 Anxiety disorder, unspecified; F32.9 Major depressive disorder, single episode, unspecified
CPT/HCPCS: 36415; 71010; 74176; 80053; 82553; 83605; 83630; 83690; 83735; 84484; 85025; 86850; 86900; 86901; 87015; 87040; 87045; 87046; 87081; 87324; 87449; 87899; 96361; 96374; 96375; C9113; J2270; J2405; J2550; J7050

== ENCOUNTER 2017-09-19 11:49 | Outpatient (CLI) | payer MEDICARE ==
[2017-09-19 12:10] LABS: #Basophils 0.1 thou/uL (0.0-0.2); #Eosinphils 0.5 thou/uL (0.0-0.7); #Monocytes 0.5 thou/uL (0.11-0.59); #Neutrophils 4.5 thou/uL (1.40-6.50); %Basophils 1.6 % (0.0-1.0); %Eosinophils 6.7 % (0.0-10.0); %Monocytes 6.9 % (0.0-10.0); %Neutrophils 58.9 % (42.0-75.0); Hemoglobin 13.6 g/dL (12.0-16.0); Mean Corpuscular HGB CONC 33.2 g/dL (32.0-36.0); Mean Corpuscular Hemoglobin 30.1 pg (27.0-31.0); Mean Corpuscular Volume 90.4 fl (81.0-99.0); Mean Platelet Volume 6.2 fL (7.4-10.4); Platelet Count 239 thou/uL (130-400); RBC Distribution Width 13.9 % (11.5-14.5); Red Blood Cell (RBC) Count 4.51 mill/uL (4.20-5.40); White Blood Cell (WBC) Count 7.6 thou/uL (4.8-10.8)
== END 2017-09-19 11:50 | disposition home or self-care (01) ==
LOC: MADLAB 11:49
DX: C90.00 Multiple myeloma not having achieved remission (principal)
CPT/HCPCS: 36415; 85025

== ENCOUNTER 2017-12-19 11:05 | Outpatient (CLI) | payer MEDICARE ==
[2017-12-19 11:35] LABS: #Basophils 0.1 thou/uL (0.0-0.2); #Eosinphils 0.4 thou/uL (0.0-0.7); #Monocytes 0.5 thou/uL (0.11-0.59); #Neutrophils 2.1 thou/uL (1.40-6.50); %Basophils 2.7 % (0.0-1.0); %Eosinophils 7.2 % (0.0-10.0); %Lymphocytes 38.9 % (21.0-51.0); %Monocytes 10.1 % (0.0-10.0); %Neutrophils 41.1 % (42.0-75.0); Hemoglobin 13.7 g/dL (12.0-16.0); Mean Corpuscular HGB CONC 31.9 g/dL (32.0-36.0); Mean Corpuscular Volume 87.7 fL (78.0-98.0); Mean Platelet Volume 6.7 fL (7.4-10.4); Platelet Count 177 thou/uL (130-400); RBC Distribution Width 13.8 % (11.5-14.5); Red Blood Cell (RBC) Count 4.88 mill/uL (4.20-5.40); White Blood Cell (WBC) Count 5.1 thou/uL (4.8-10.8)
[2017-12-19 11:56] LABS: ALT (SGPT) 27 U/L (8-55); AST (SGOT) 24 U/L (5-34); Albumin 3.9 g/dL (3.4-4.8); Alkaline Phosphatase 73 U/L (40-150); Anion Gap 13 mmol/L (10-20); BUN (Urea Nitrogen) 14 mg/dL (9.8-20.1); Bilirubin, Total 0.5 mg/dL (0.2-1.2); Calc. Creatinine Clearance 0 mL/min (70-130); Calcium 9.5 mg/dL (7.8-10.44); Carbon Dioxide 23 mmol/L (23-31); Cardiac Risk 2.7 (Less than 4.5); Chloride 105 mmol/L (98-107); Cholesterol 129 mg/dl (< 200 Desired); Estimated GFR-MDRD 74; Globulin 2.7 g/dL (2.4-3.5); Glucose 116 mg/dL (80-115); HDL Cholesterol 47 mg/dL (>60 Neg Risk); LDL Cholesterol, Calculated 64 mg/dL; Potassium 4.2 mmol/L (3.5-5.1); Protein, Total 6.6 g/dL (6.0-8.3); Sodium 137 mmol/L (136-145); Triglycerides 90 mg/dL (Less than 150)
[2017-12-19 17:27] LABS: Hemoglobin A1c 5.8 % (4.0-6.0)
[2017-12-19 17:38] LABS: Iron 96 ug/dL (50-170); Iron Binding Capacity, Total 333 mcg/dL (265-497)
[2017-12-19 17:54] LABS: Vitamin D, 25 Hydroxy 43.6 ng/ml (> 30.0)
== END 2017-12-19 11:06 | disposition home or self-care (01) ==
LOC: MADLAB 11:05
PROVIDERS: ATTEND Surgery
DX: I10 Essential (primary) hypertension (principal)
CPT/HCPCS: 36415; 80053; 80061; 82306; 82607; 82746; 83036; 83540; 83550; 83970; 84207; 84425; 84443; 84479; 84481; 85025

== ENCOUNTER 2018-01-31 09:20 | Outpatient (CLI) | payer MEDICARE ==
[2018-01-31 11:47] LABS: #Basophils 0.2 thou/uL (0.0-0.2); #Eosinphils 0.3 thou/uL (0.0-0.7); #Lymphocytes 2.3 thou/uL (1.20-3.40); #Monocytes 0.6 thou/uL (0.11-0.59); #Neutrophils 2.7 thou/uL (1.40-6.50); %Basophils 2.6 % (0.0-1.0); %Eosinophils 5.4 % (0.0-10.0); %Lymphocytes 37.4 % (21.0-51.0); %Monocytes 10.3 % (0.0-10.0); %Neutrophils 44.2 % (42.0-75.0); Hemoglobin 13.6 g/dL (12.0-16.0); Mean Corpuscular HGB CONC 32.3 g/dL (32.0-36.0); Mean Corpuscular Hemoglobin 28.1 pg (27.0-31.0); Mean Corpuscular Volume 86.8 fL (78.0-98.0); Mean Platelet Volume 6.3 fL (7.4-10.4); Platelet Count 187 thou/uL (130-400); Red Blood Cell (RBC) Count 4.85 mill/uL (4.20-5.40); White Blood Cell (WBC) Count 6.1 thou/uL (4.8-10.8)
== END 2018-01-31 09:21 | disposition home or self-care (01) ==
LOC: MADLAB 09:20
PROVIDERS: ATTEND Physician Assistant Medical
DX: C90.00 Multiple myeloma not having achieved remission (principal)
CPT/HCPCS: 36415; 85025

== ENCOUNTER 2018-03-21 10:00 | Outpatient (CLI) | payer MEDICARE ==
[2018-03-22 19:19] LABS: %Eosinophils 5.1 % (0.0-10.0); %Lymphocytes 28.2 % (21.0-51.0); %Monocytes 8.9 % (0.0-10.0); %Neutrophils 55.7 % (42.0-75.0); Hemoglobin 13.9 g/dL (12.0-16.0); Manual Diff?? NO; Mean Corpuscular HGB CONC 32.3 g/dL (32.0-36.0); Mean Corpuscular Hemoglobin 29.4 pg (27.0-31.0); Mean Corpuscular Volume 91.1 fL (78.0-98.0); Mean Platelet Volume 6.6 fL (7.4-10.4); Platelet Count 216 thou/uL (130-400); RBC Distribution Width 14.6 % (11.5-14.5); Red Blood Cell (RBC) Count 4.75 mill/uL (4.20-5.40); White Blood Cell (WBC) Count 5.3 thou/uL (4.8-10.8)
[2018-03-22 19:20] LABS: #Basophils 0.1 thou/uL (0.0-0.2); #Eosinphils 0.3 thou/uL (0.0-0.7); #Lymphocytes 1.5 thou/uL (1.20-3.40); #Monocytes 0.5 thou/uL (0.11-0.59); #Neutrophils 2.9 thou/uL (1.40-6.50); %Basophils 2.1 % (0.0-1.0)
[2018-03-22 19:23] LABS: Anion Gap 14 mmol/L (10-20); BUN (Urea Nitrogen) 15 mg/dL (9.8-20.1); Calc. Creatinine Clearance 0 mL/min (70-130); Carbon Dioxide 25 mmol/L (23-31); Chloride 106 mmol/L (98-107); Estimated GFR-MDRD 67; Potassium 3.9 mmol/L (3.5-5.1); Sodium 141 mmol/L (136-145)
[2018-03-22 19:24] LABS: ALT (SGPT) 24 U/L (8-55); AST (SGOT) 21 U/L (5-34); Albumin 4.1 g/dL (3.4-4.8); Alkaline Phosphatase 90 U/L (40-150); Bilirubin, Total 0.5 mg/dL (0.2-1.2); Calcium 9.8 mg/dL (7.8-10.44); Cholesterol 133 mg/dL (< 200 Desired); Globulin 2.9 g/dL (2.4-3.5); Glucose 123 mg/dL (80-115)
[2018-03-22 19:25] LABS: Cardiac Risk 2.4 (Less than 4.5); HDL Cholesterol 55 mg/dL (>60 Neg Risk); LDL Cholesterol, Calculated 58 mg/dL; Thyroid Stimulating Hormone 1.3574 uIU/mL (0.35-4.94); Triglycerides 99 mg/dL (Less than 150)
[2018-03-23 15:26] LABS: Hemoglobin A1c 5.5 % (4.0-6.0)
[2018-03-23 15:50] LABS: Ferritin 132.27 ng/mL (10-291); Free T4 (Free Thyroxine) 1.05 ng/dL (0.70-1.48)
[2018-03-23 16:07] LABS: Iron 78 ug/dL (50-170); Iron Binding Capacity, Total 353 mcg/dL (265-497)
[2018-03-23 16:28] LABS: Folate (Folic Acid) 14.7 ng/mL (7.0-31.4)
== END 2018-03-21 10:01 | disposition home or self-care (01) ==
LOC: MADLAB 10:00
PROVIDERS: ATTEND Surgery
DX: E11.9 Type 2 diabetes mellitus without complications (principal)
CPT/HCPCS: 36415; 80053; 80061; 82306; 82607; 82728; 82746; 83036; 83540; 83550; 83970; 84207; 84425; 84439; 84443; 85025

== ENCOUNTER 2018-04-15 13:01 | Outpatient (CLI) | payer MEDICARE ==
[2018-04-15 13:18] LABS: #Basophils 0.1 thou/uL (0.0-0.2); #Eosinphils 0.4 thou/uL (0.0-0.7); #Lymphocytes 2.5 thou/uL (1.20-3.40); #Monocytes 0.6 thou/uL (0.11-0.59); #Neutrophils 3.6 thou/uL (1.40-6.50); %Basophils 1.9 % (0.0-1.0); %Eosinophils 5.7 % (0.0-10.0); %Lymphocytes 34.1 % (21.0-51.0); %Monocytes 8.5 % (0.0-10.0); %Neutrophils 49.8 % (42.0-75.0); Mean Corpuscular HGB CONC 32.1 g/dL (32.0-36.0); Mean Corpuscular Hemoglobin 29.6 pg (27.0-31.0); Mean Corpuscular Volume 92.3 fL (78.0-98.0); Mean Platelet Volume 6.5 fL (7.4-10.4); Platelet Count 229 thou/uL (130-400); RBC Distribution Width 13.2 % (11.5-14.5); Red Blood Cell (RBC) Count 4.38 mill/uL (4.20-5.40); White Blood Cell (WBC) Count 7.2 thou/uL (4.8-10.8)
== END 2018-04-15 13:02 | disposition home or self-care (01) ==
LOC: MADLAB 13:01
PROVIDERS: ATTEND Physician Assistant Medical
DX: C90.00 Multiple myeloma not having achieved remission (principal)
CPT/HCPCS: 36415; 85025

== ENCOUNTER 2018-08-19 14:18 | Outpatient (CLI) | payer MEDICARE ==
[2018-08-19 15:22] LABS: Hemoglobin 12.6 g/dL (12.0-16.0); Mean Corpuscular HGB CONC 32.6 g/dL (32.0-36.0); Mean Corpuscular Hemoglobin 29.8 pg (27.0-31.0); Mean Corpuscular Volume 91.3 fL (78.0-98.0); Red Blood Cell (RBC) Count 4.22 mill/uL (4.20-5.40); White Blood Cell (WBC) Count 6.1 thou/uL (4.8-10.8)
[2018-08-19 15:23] LABS: %Lymphocytes 35.4 % (21.0-51.0); Mean Platelet Volume 6.4 fL (7.4-10.4); Platelet Count 208 thou/uL (130-400); RBC Distribution Width 14.1 % (11.5-14.5)
[2018-08-19 15:24] LABS: #Basophils 0.1 thou/uL (0.0-0.2); #Eosinphils 0.2 thou/uL (0.0-0.7); #Monocytes 0.6 thou/uL (0.11-0.59); #Neutrophils 2.9 thou/uL (1.40-6.50); %Basophils 2.2 % (0.0-1.0); %Eosinophils 4.1 % (0.0-10.0); %Monocytes 10.3 % (0.0-10.0); MDiff Complete? YES
[2018-08-19 15:28] LABS: Anisocytosis SLIGHT = 6-15 cells (100X) (0-5/hpf); Platelet Morphology Comment Appears Adequate
[2018-08-21 08:09] LABS: #Lymphocytes 2.2 thou/uL (1.20-3.40)
== END 2018-08-19 14:19 | disposition home or self-care (01) ==
LOC: MADLAB 14:18
PROVIDERS: ATTEND Physician Assistant Medical
DX: C90.00 Multiple myeloma not having achieved remission (principal)
CPT/HCPCS: 36415; 85025

== ENCOUNTER 2018-09-19 09:56 | Outpatient (CLI) | payer MEDICARE ==
[2018-09-19 10:36] LABS: #Basophils 0.1 thou/uL (0.0-0.2); #Eosinphils 0.2 thou/uL (0.0-0.7); #Lymphocytes 1.3 thou/uL (1.20-3.40); #Monocytes 0.4 thou/uL (0.11-0.59); #Neutrophils 2.1 thou/uL (1.40-6.50); %Basophils 2.2 % (0.0-1.0); %Eosinophils 5.1 % (0.0-10.0); %Lymphocytes 31.2 % (21.0-51.0); %Monocytes 9.8 % (0.0-10.0); %Neutrophils 51.8 % (42.0-75.0); Mean Corpuscular Hemoglobin 28.7 pg (27.0-31.0); Mean Corpuscular Volume 89.7 fL (78.0-98.0); Mean Platelet Volume 6.2 fL (7.4-10.4); Platelet Count 188 thou/uL (130-400); RBC Distribution Width 14.1 % (11.5-14.5); Red Blood Cell (RBC) Count 4.53 mill/uL (4.20-5.40)
[2018-09-19 10:54] LABS: ALT (SGPT) 19 U/L (8-55); AST (SGOT) 18 U/L (5-34); Albumin 3.9 g/dL (3.4-4.8); Alkaline Phosphatase 77 U/L (40-150); Anion Gap 15 mmol/L (10-20); BUN (Urea Nitrogen) 13 mg/dL (9.8-20.1); Bilirubin, Direct 0.2 mg/dL (0.1-0.3); Bilirubin, Total 0.4 mg/dL (0.2-1.2); Calc. Creatinine Clearance 0 mL/min (70-130); Calcium 9.4 mg/dL (7.8-10.44); Carbon Dioxide 25 mmol/L (23-31); Cardiac Risk 2.7 (Less than 4.5); Chloride 105 mmol/L (98-107); Cholesterol 161 mg/dl (< 200 Desired); Estimated GFR-MDRD 87; Glucose 95 mg/dL (80-115); HDL Cholesterol 59 mg/dL (>60 Neg Risk); LDL Cholesterol, Calculated 86 mg/dL; Protein, Total 6.3 g/dL (6.0-8.3); Sodium 141 mmol/L (136-145); Triglycerides 81 mg/dL (Less than 150)
[2018-09-19 16:54] LABS: Iron 70 ug/dL (50-170); Iron Binding Capacity, Total 299 mcg/dL (265-497)
[2018-09-19 17:32] LABS: Vitamin B12 Greater than 2000 pg/mL (211-911)
== END 2018-09-19 09:57 | disposition home or self-care (01) ==
LOC: MADLAB 09:56
PROVIDERS: ATTEND Surgery
DX: C90.00 Multiple myeloma not having achieved remission (principal); Z79.899 Other long term (current) drug therapy
CPT/HCPCS: 36415; 80048; 80061; 80076; 82306; 82525; 82607; 82746; 83036; 83540; 83550; 84425; 84590; 84630; 85025

== ENCOUNTER 2018-10-21 14:39 | Outpatient (CLI) | payer MEDICARE ==
[2018-10-21 15:05] LABS: #Basophils 0.1 thou/uL (0.0-0.2); #Eosinphils 0.3 thou/uL (0.0-0.7); #Monocytes 0.6 thou/uL (0.11-0.59); #Neutrophils 2.6 thou/uL (1.40-6.50); %Lymphocytes 35.8 % (21.0-51.0); %Monocytes 9.9 % (0.0-10.0); %Neutrophils 46.3 % (42.0-75.0); Hemoglobin 12.6 g/dL (12.0-16.0); Mean Corpuscular HGB CONC 31.7 g/dL (32.0-36.0); Mean Corpuscular Hemoglobin 28.9 pg (27.0-31.0); Mean Platelet Volume 5.8 fL (7.4-10.4); Platelet Count 190 thou/uL (130-400); RBC Distribution Width 14.2 % (11.5-14.5); Red Blood Cell (RBC) Count 4.38 mill/uL (4.20-5.40); White Blood Cell (WBC) Count 5.6 thou/uL (4.8-10.8)
== END 2018-10-21 14:40 | disposition home or self-care (01) ==
LOC: MADLAB 14:39
PROVIDERS: ATTEND Physician Assistant Medical
DX: C90.00 Multiple myeloma not having achieved remission (principal)
CPT/HCPCS: 36415; 85025

== ENCOUNTER 2019-09-14 14:30 | Emergency (ER) | payer MEDICARE ==
[2019-09-14 15:40] LABS: #Basophils 0.1 thou/uL (0.0-0.2); #Eosinphils 0.2 thou/uL (0.0-0.7); #Lymphocytes 1.8 thou/uL (1.20-3.40); #Monocytes 0.4 thou/uL (0.11-0.59); #Neutrophils 2.5 thou/uL (1.40-6.50); %Basophils 1.9 % (0.0-1.0); %Eosinophils 3.4 % (0.0-10.0); %Lymphocytes 35.5 % (21.0-51.0); %Monocytes 8.5 % (0.0-10.0); %Neutrophils 50.7 % (42.0-75.0); Mean Corpuscular HGB CONC 31.8 g/dL (32.0-36.0); Mean Corpuscular Hemoglobin 29.9 pg (27.0-31.0); Mean Platelet Volume 6.8 fL (7.4-10.4); Platelet Count 153 thou/uL (130-400); RBC Distribution Width 13.7 % (11.5-14.5); Red Blood Cell (RBC) Count 4.02 mill/uL (4.20-5.40)
[2019-09-14 15:55] LABS: ALT (SGPT) 37 U/L (8-55); AST (SGOT) 23 U/L (5-34); Albumin 3.9 g/dL (3.4-4.8); Alkaline Phosphatase 76 U/L (40-110); Anion Gap 14 mmol/L (10-20); BUN (Urea Nitrogen) 22 mg/dL (9.8-20.1); Bilirubin, Total 0.2 mg/dL (0.2-1.2); CK (CPK) 77 U/L (29-168); Calc. Creatinine Clearance 0 mL/min (70-130); Carbon Dioxide 26 mmol/L (23-31); Chloride 103 mmol/L (98-107); Estimated GFR-MDRD Greater than 90; Globulin 2.2 g/dL (2.4-3.5); Glucose 101 mg/dL (80-115); Potassium 4.6 mmol/L (3.5-5.1); Protein, Total 6.1 g/dL (6.0-8.3); Sodium 138 mmol/L (136-145)
--- NOTE | 2019-09-14 16:01 | RAD ---
PA AND LATERAL OF THE CHEST: INDICATION: Chest pain. COMPARISON: Prior exam dated 01/03/2019. FINDINGS: The nipple shadow overlies the right chest wall. No consolidation is evident. Heart size is normal. There is multilevel spondylosis of the thoracic spine. IMPRESSION: No acute cardiopulmonary abnormality. POS: BH
[2019-09-14 16:32] LABS: Bilirubin Negative (Negative); Blood, Urine Negative (Negative); Clarity Clear (Clear); Glucose, Urine (Dipstick) Negative (Negative); Leukocyte Negative (Negative); Nitrite Negative (Negative); Protein, Urine (Dipstick) Negative (Neg-Trace); Urobilinogen 0.2 mg/dL (Less than 2)
== END 2019-09-14 17:10 | disposition home or self-care (01) ==
LOC: MADERS 14:30
DX: R30.0 Dysuria (principal); R07.9 Chest pain, unspecified; E03.9 Hypothyroidism, unspecified; K21.9 Gastro-esophageal reflux disease without esophagitis; E78.5 Hyperlipidemia, unspecified; I10 Essential (primary) hypertension; J45.909 Unspecified asthma, uncomplicated; F32.9 Major depressive disorder, single episode, unspecified
CPT/HCPCS: 36415; 71046; 80053; 81003; 82550; 84484; 85025; 93005

== ENCOUNTER 2019-12-15 14:17 | Outpatient (CLI) | payer MEDICARE ==
[2019-12-15 14:28] LABS: #Basophils 0.1 thou/uL (0.0-0.2); #Eosinphils 0.2 thou/uL (0.0-0.7); #Lymphocytes 1.5 thou/uL (1.20-3.40); #Monocytes 0.5 thou/uL (0.11-0.59); #Neutrophils 2.9 thou/uL (1.40-6.50); %Basophils 2.1 % (0.0-1.0); %Lymphocytes 28.5 % (21.0-51.0); %Monocytes 9.4 % (0.0-10.0); %Neutrophils 55.9 % (42.0-75.0); Hemoglobin 11.9 g/dL (12.0-16.0); Mean Corpuscular HGB CONC 30.8 g/dL (32.0-36.0); Mean Corpuscular Hemoglobin 29.4 pg (27.0-31.0); Mean Corpuscular Volume 95.4 fL (78.0-98.0); Mean Platelet Volume 6.2 fL (7.4-10.4); Platelet Count 196 thou/uL (130-400); RBC Distribution Width 13.9 % (11.5-14.5); Red Blood Cell (RBC) Count 4.04 mill/uL (4.20-5.40); White Blood Cell (WBC) Count 5.2 thou/uL (4.8-10.8)
== END 2019-12-15 14:18 | disposition home or self-care (01) ==
LOC: MADLAB 14:17
PROVIDERS: ATTEND Physician Assistant Medical
DX: C90.00 Multiple myeloma not having achieved remission (principal)
CPT/HCPCS: 36415; 85025

== ENCOUNTER 2020-03-11 12:39 | Outpatient (CLI) | payer MEDICARE ==
[2020-03-11 13:40] LABS: #Basophils 0.1 thou/uL (0.0-0.2); #Eosinphils 0.2 thou/uL (0.0-0.7); #Lymphocytes 1.9 thou/uL (1.20-3.40); #Monocytes 0.5 thou/uL (0.11-0.59); #Neutrophils 2.8 thou/uL (1.40-6.50); %Basophils 2.3 % (0.0-1.0); %Eosinophils 3.7 % (0.0-10.0); %Lymphocytes 34.3 % (21.0-51.0); %Monocytes 9.4 % (0.0-10.0); %Neutrophils 50.2 % (42.0-75.0); Hemoglobin 13.9 g/dL (12.0-16.0); Mean Corpuscular HGB CONC 31.7 g/dL (32.0-36.0); Mean Corpuscular Hemoglobin 29.1 pg (27.0-31.0); Mean Platelet Volume 6.6 fL (7.4-10.4); Platelet Count 242 thou/uL (130-400); RBC Distribution Width 13.7 % (11.5-14.5); Red Blood Cell (RBC) Count 4.76 mill/uL (4.20-5.40); White Blood Cell (WBC) Count 5.6 thou/uL (4.8-10.8)
== END 2020-03-11 12:40 | disposition home or self-care (01) ==
LOC: MADLAB 12:39
PROVIDERS: ATTEND Physician Assistant Medical
DX: C90.00 Multiple myeloma not having achieved remission (principal)
CPT/HCPCS: 36415; 85025

== ENCOUNTER 2020-04-19 12:29 | Outpatient (CLI) | payer MEDICARE ==
[2020-04-19 12:52] LABS: #Basophils 0.1 thou/uL (0.0-0.2); #Eosinphils 0.1 thou/uL (0.0-0.7); #Lymphocytes 1.4 thou/uL (1.20-3.40); #Monocytes 0.4 thou/uL (0.11-0.59); #Neutrophils 2.2 thou/uL (1.40-6.50); %Basophils 1.9 % (0.0-1.0); %Eosinophils 3.4 % (0.0-10.0); %Lymphocytes 32.9 % (21.0-51.0); %Monocytes 9.4 % (0.0-10.0); %Neutrophils 52.5 % (42.0-75.0); Hemoglobin 12.8 g/dL (12.0-16.0); Mean Corpuscular HGB CONC 32.8 g/dL (32.0-36.0); Mean Corpuscular Hemoglobin 30.7 pg (27.0-31.0); Mean Corpuscular Volume 93.6 fL (78.0-98.0); Platelet Count 195 thou/uL (130-400); RBC Distribution Width 13.1 % (11.5-14.5); Red Blood Cell (RBC) Count 4.17 mill/uL (4.20-5.40); White Blood Cell (WBC) Count 4.1 thou/uL (4.8-10.8)
== END 2020-04-19 12:30 | disposition home or self-care (01) ==
LOC: MADLABBHPM 12:29
PROVIDERS: ATTEND Physician Assistant Medical
DX: C90.00 Multiple myeloma not having achieved remission (principal)
CPT/HCPCS: 36415; 85025

== ENCOUNTER 2020-05-16 11:57 | Outpatient (CLI) | payer MEDICARE ==
[2020-05-16 12:22] LABS: #Basophils 0.1 thou/uL (0.0-0.2); #Eosinphils 0.2 thou/uL (0.0-0.7); #Lymphocytes 1.6 thou/uL (1.20-3.40); #Monocytes 0.5 thou/uL (0.11-0.59); #Neutrophils 2.3 thou/uL (1.40-6.50); %Basophils 2.7 % (0.0-1.0); %Eosinophils 4.6 % (0.0-10.0); %Lymphocytes 33.6 % (21.0-51.0); %Monocytes 10.6 % (0.0-10.0); %Neutrophils 48.6 % (42.0-75.0); Hemoglobin 13.2 g/dL (12.0-16.0); Mean Corpuscular HGB CONC 31.6 g/dL (32.0-36.0); Mean Corpuscular Hemoglobin 29.8 pg (27.0-31.0); Mean Corpuscular Volume 94.1 fL (78.0-98.0); Mean Platelet Volume 6.4 fL (7.4-10.4); Platelet Count 190 thou/uL (130-400); RBC Distribution Width 13.4 % (11.5-14.5); Red Blood Cell (RBC) Count 4.43 mill/uL (4.20-5.40); White Blood Cell (WBC) Count 4.7 thou/uL (4.8-10.8)
== END 2020-05-16 11:58 | disposition home or self-care (01) ==
LOC: MADLAB 11:57
PROVIDERS: ATTEND Physician Assistant Medical
DX: C90.00 Multiple myeloma not having achieved remission (principal)
CPT/HCPCS: 36415; 85025

== ENCOUNTER 2020-06-22 14:13 | Outpatient (CLI) | payer MEDICARE ==
[2020-06-22 14:27] LABS: #Basophils 0.1 thou/uL (0.0-0.2); #Eosinphils 0.1 thou/uL (0.0-0.7); #Lymphocytes 1.4 thou/uL (1.20-3.40); #Monocytes 0.5 thou/uL (0.11-0.59); #Neutrophils 3.9 thou/uL (1.40-6.50); %Basophils 2.2 % (0.0-1.0); %Eosinophils 2.2 % (0.0-10.0); %Lymphocytes 23.5 % (21.0-51.0); %Monocytes 8.2 % (0.0-10.0); %Neutrophils 63.9 % (42.0-75.0); Hemoglobin 13.6 g/dL (12.0-16.0); Mean Corpuscular HGB CONC 32.9 g/dL (32.0-36.0); Mean Corpuscular Hemoglobin 30.4 pg (27.0-31.0); Mean Corpuscular Volume 92.5 fL (78.0-98.0); Mean Platelet Volume 6.2 fL (7.4-10.4); Platelet Count 194 thou/uL (130-400); RBC Distribution Width 12.9 % (11.5-14.5); Red Blood Cell (RBC) Count 4.46 mill/uL (4.20-5.40); White Blood Cell (WBC) Count 6.1 thou/uL (4.8-10.8)
== END 2020-06-22 14:14 | disposition home or self-care (01) ==
LOC: MADLAB 14:13
PROVIDERS: ATTEND Physician Assistant Medical
DX: C90.00 Multiple myeloma not having achieved remission (principal)
CPT/HCPCS: 36415; 85025

== ENCOUNTER 2021-03-31 23:42 | Emergency (ER) | payer MEDICARE ==
[~2021-03-31 23:42] MED LIST changes: +Iopamidol 370 76% 100 ML VIAL ONE; -Sodium Chloride 0.9% 1,000 ML BAG ONE
[2021-04-01 00:40] LABS: ALT (SGPT) 46 U/L (8-55); AST (SGOT) 38 U/L (5-34); Albumin 4.3 g/dL (3.4-4.8); Alkaline Phosphatase 104 U/L (40-110); Anion Gap 14 mmol/L (10-20); BUN (Urea Nitrogen) 21 mg/dL (9.8-20.1); Bilirubin, Total 0.3 mg/dL (0.2-1.2); Calc. Creatinine Clearance 0 mL/min (70-130); Calcium 9.7 mg/dL (7.8-10.44); Carbon Dioxide 24 mmol/L (23-31); Chloride 102 mmol/L (98-107); Globulin 2.4 g/dL (2.4-3.5); Glucose 100 mg/dL (80-115); Potassium 3.5 mmol/L (3.5-5.1); Protein, Total 6.7 g/dL (5.8-8.1); Sodium 136 mmol/L (136-145)
[2021-04-01 00:43] LABS: Hemoglobin 13.1 g/dL (12.0-16.0); Mean Corpuscular HGB CONC 30.9 g/dL (32.0-36.0); Mean Corpuscular Hemoglobin 28.1 pg (27.0-31.0); Mean Corpuscular Volume 90.8 fL (78.0-98.0); Mean Platelet Volume 6.6 fL (7.4-10.4); Platelet Count 194 thou/uL (130-400); RBC Distribution Width 14.3 % (11.5-14.5); Red Blood Cell (RBC) Count 4.67 mill/uL (4.20-5.40); White Blood Cell (WBC) Count 7.2 thou/uL (4.8-10.8)
[2021-04-01 00:44] LABS: Band 2 % (5-11); Eosinophils 4 % (0-10); Lymphocytes 40 % (21-51); MDiff Complete? YES; Monocytes 4 % (0-10); Neutrophil 50 % (42-75); Platelet Morphology Comment Appears Adequate; RBC Morphology Normal
== END 2021-04-01 02:07 | disposition short-term general hospital (02) ==
LOC: MADERS 23:42
DX: M79.81 Nontraumatic hematoma of soft tissue (principal); E03.9 Hypothyroidism, unspecified; K21.9 Gastro-esophageal reflux disease without esophagitis; E78.5 Hyperlipidemia, unspecified; E78.00 Pure hypercholesterolemia, unspecified; I10 Essential (primary) hypertension; E66.9 Obesity, unspecified; J45.909 Unspecified asthma, uncomplicated
CPT/HCPCS: 80053; 85025; Q9967